=== PATIENT | female | born 1955 | race Caucasian/White ===

== ENCOUNTER 2016-11-25 16:30 | Inpatient (IN) | payer MEDICARE, MEDICAID ==
[~2016-11-25] VITALS: Ht 175.3 cm; Wt 119.6 kg
--- NOTE | ~2016-11-25 | HP ---
PATIENT'S NAME: MAGGIE CORDOVA [facility] AGE: 60 Y [address] ROOM: [id number] [place] [id number] LOCATION: [facility] ADMIT DATE: 11/25/2016 History & Physical DISCHARGE DATE: FAMILY PHYSICIAN: Juanito Lu MD ATTENDING PHYSICIAN: Juanito Lu DATE OF SERVICE: CHIEF COMPLAINT: Increasing confusion, weakness, and hematuria, possible sepsis syndrome. HISTORY OF PRESENT ILLNESS: The patient is a 60-year-old female who normally sees Dr. Mcdonald. 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 The patient basically over the last few days has had increasing confusion. She had had a suprapubic placed in the not too distant past, that was done for urinary retention. She has had a previous history of UTIs. The patient had increasing weakness and confusion over the last few days and then developed gross hematuria. She was transported to the [facility], seen there, and then transported here with Dr. Prescott, the hospitalist accepting. He reviewed the patient's chart, found out Dr. Mcdonald was the patient's doctor and consulted me. I discussed things with the patient. She is feeling weak. She states she is really not that worse than usual, and she is alert and responds appropriately to questions at this time. PAST MEDICAL HISTORY: Chronic health problems as above. CURRENT MEDICATIONS: 1. Abilify 2 mg tablet, she takes 7.5 tablets daily. Actually there was some confusion on our list from the office, it says 7.5 tablets daily whereas from the group home it was 7.5 mg p.o. every morning of a 5 mg tablet. 2. Acetaminophen. 3. Aspirin 325 daily. 4. Atorvastatin 20 mg daily. PATIENT'S NAME: MAGGIE CORDOVA [facility] AGE: 60 Y [address] ROOM: [place] [address] LOCATION: [facility] ADMIT DATE: 11/25/2016 History & Physical DISCHARGE DATE: FAMILY PHYSICIAN: Juanito Lu MD ATTENDING PHYSICIAN: Juanito Lu 5. Artificial Tears p.r.n. 6. Benazepril or 10 mg daily. 7. Cetaphil lotion. 8. Cetirizine 10 mg daily. 9. Plavix 75 mg daily. 10. Ferrous sulfate 325 daily. 11. Hydromorphone or Dilaudid 2 mg every 4 hours as needed. 12. Lantus 54 units in the morning and 54 units in the evening. 13. Humalog 15 units before breakfast and 18 units before supper, and she is also on a sliding scale. 14. She is on Imodium 2 mg p.r.n., diarrhea. 15. Milk of magnesia p.r.n., constipation. 16. Metoprolol 12.5 mg daily. 17. Multivitamin daily. 18. Nystatin p.r.n. 19. Ondansetron 4 mg sublingually every 6 hours p.r.n. nauseousness. 20. Pantoprazole 40 mg daily. 21. MiraLAX 17 g daily. 22. Gabapentin was recently increased to 150 mg three times daily. 23. Seroquel XR 200 mg at night. 24. Bactrim DS daily. 25. Tramadol 100 mg every 6 hours p.r.n. 26. Triamcinolone cream as needed. 27. Viibryd 40 mg daily. PREVIOUS SURGERIES: Abdominal aortogram and pelvic angiography with right lower extremity runoff plus selective catheter placement in the distal peroneal, attempted MANAGER MERCHANDISE of the posterior tibial artery by Dr. Latricia Sinha. She had a right BKA on 06/05/2015 and a left BKA on 10/14/2016. She had lumbar laminectomy x2; one in 2001 with left L5-S1 and lumbar laminectomy in 2006, not known which level. She has had dental extraction of all the bottom teeth. She had an echocardiogram, the last one being on 10/17/2016, which shows grossly normal in size but limited visualization and grade 1 diastolic dysfunction; in 2016, her EF was 45-50% with mild concentric LVH, impaired LV relaxation with mild to moderate apical wall hypokinesis. She had a heart catheterization in 02/2016 and had a RCA stent for 80% blockage. She had a total abdominal hysterectomy with left-sided removal of tube and ovary due to dysmenorrhea and endometriosis. She had a previous PICC line placement in 08/2016. She had a stent to her SFA on the right and the distal SFA on the right lower extremity. She has had 3 vaginal deliveries. Has a suprapubic catheter. She is 3, para 3. SOCIAL HISTORY: She is a resident at [facility] in [place]. She is a former smoker. Drinks PATIENT'S NAME: MAGGIE CORDOVA [facility] AGE: 60 Y [address] ROOM: [id number] [place] [address] LOCATION: [facility] ADMIT DATE: 11/25/2016 History & Physical DISCHARGE DATE: FAMILY PHYSICIAN: Juanito Lu MD ATTENDING PHYSICIAN: Juanito Lu 3 cups of coffee a day. Does not drink alcohol. She had a pneumococcal on 03/17/2011 and a previous Tdap on 10/27/2012. REVIEW OF SYSTEMS: HEENT: Denies complaints. LUNGS: Negative. CARDIOVASCULAR: Negative. GI: Negative. EXTREMITIES: Does complain of phantom pain at times. MENTAL STATUS: She seems to be alert and answers questions now, but does have a history of being increasingly confused and lethargic. PHYSICAL EXAMINATION: GENERAL: Alert female, resting comfortably in bed. HEENT: Normal. Oropharynx is clear, does not look very dry at this time, which is good. NECK: Supple. No adenopathy. LUNGS: Clear. HEART: Regular rate and rhythm. ABDOMEN: Morbidly obese. Suprapubic catheter is draining grossly red blood. EXTREMITIES: She has bilateral BKAs. NEUROLOGIC: She also has a right hemiparesis due to previous history of CVA. LABORATORY DATA: Currently pending here, I did review her lab work from [place]. She had normal EKG. She had a CT of her head, no acute changes. Chest x-ray showed low lung volumes, but otherwise normal. Sodium 139, potassium 4.2, chloride 102, carbon dioxide 21, glucose 71, urea nitrogen 31, and creatinine 1.42. Total calcium 9.7, total protein 8.4, albumin 4, total bilirubin 0.5, ALT 17, AST 34, and alkaline phosphatase 122. Lactic acid 1.6. ABG showed pH 7.34 with pCO2 44, PO2 102, bicarb 24, base excess -3, 97% saturated. White count was 7.4, hemoglobin 11.9, hematocrit 38, and platelet count 225. RDW 18.3. She had 69% granulocytes and 28% lymphocytes. ASSESSMENT: 1. Altered mental state with encephalopathy, most likely sepsis in nature and metabolic. 2. Sepsis syndrome. 3. Probable urinary tract infection. 4. Gross hematuria. 5. History of generalized anxiety disorder. 6. Coronary artery disease, status post stenting of her right coronary artery. 7. Chronic kidney disease, stage 3. 8. History of bilateral lower extremity amputation. PATIENT'S NAME: MAGGIE CORDOVA [facility] AGE: 60 Y [address] ROOM: [place] [address] LOCATION: [facility] ADMIT DATE: 11/25/2016 History & Physical DISCHARGE DATE: FAMILY PHYSICIAN: Juanito Lu MD ATTENDING PHYSICIAN: Juanito Lu 9. Adult-onset diabetes mellitus with numerous complications including peripheral vascular disease, kidney disease, neuropathy, and angioapathy. 10. She also has a known history of personality disorder, peripheral vascular disease, osteomyelitis, morbid obesity, ischemic vascular disease, and long-term insulin use. PLAN: At this point in time, we are going to admit the patient. We will do IV fluid hydration. Accu-Cheks a.c. and h.s., continue her insulin, and do a moderate sliding scale. Start her on IV antibiotics. I will hold off on Lovenox for the time being due to her gross hematuria. We will probably plan on a Urology consult in the morning. I did discuss the patient with Dr. Mcdonald, and he will assume care in the morning. JUANITO LU MD FLOYD/modl /[id number] CC: [employer]inter [facility]EL[facility] D: [id number] T: [id number] HISTORY & PHYSICAL
--- NOTE | ~2016-11-25 | DS ---
PATIENT'S NAME: MAGGIE CORDOVA [facility] AGE: 60 Y [address] ROOM: [id number] [place] [address] LOCATION: [facility] ADMIT DATE: 11/25/2016 Discharge Summary DISCHARGE DATE: 11/29/2016 FAMILY PHYSICIAN: Juanito Dupree MD ATTENDING PHYSICIAN: Juanito Dupree FINAL DIAGNOSES: 1. Mental status changes, resolved. 2. Urinary tract infection. 3. Type 2 diabetes mellitus. 4. History of bilateral below the knee amputation. 5. Anxiety. 6. Severe depression. 7. History of cerebrovascular accident with right-sided hemiparesis, mainly affecting the right arm. 8. Reflux. 9. Hyperlipidemia. 10. Hypertensive chronic kidney disease. 11. Ischemic vascular disease. 12. Morbid obesity. REASON FOR ADMIT: This 60-year-old white female had onset of confusion. It was felt that she may be getting septic. She subsequently presented to [facility], she was transferred over here for further definitive care. By the time she was here and the time Dr. Dupree's admit, she basically had altered mental status change resolved. She was found to have a UTI that was secondary to Proteus mirabilis. This was susceptible to Rocephin, IV antibiotics were changed to that. Really, she is ready to go home after 48 hours because she had no further fevers and was feeling great, back to normal state of health. However, the long term would not take her back at the weekend, so we weekend and on Tuesday morning she continued to be afebrile and was deemed ready for discharge. Her discharge instructions, only one changed, all from her admit one with exception of adding on Ceftin 250 b.i.d. for 5 days. She will call or return if she has any further problems or concerns. She voiced understanding of this plan and is eager to get home. DEYANIRA CAMPBELL MD TAB/modl PATIENT'S NAME: MAGGIE CORDOVA [facility] AGE: 60 Y [address] ROOM: [place] [address] LOCATION: [facility] ADMIT DATE: 11/25/2016 Discharge Summary DISCHARGE DATE: 11/29/2016 FAMILY PHYSICIAN: Juanito Dupree MD ATTENDING PHYSICIAN: Juanito Dupree /[id number] d: 11/29/16714 t: 12/08/16 0738, DISCHARGE SUMMARY
--- NOTE | ~2016-11-25 | CON ---
PATIENT'S NAME: MAGGIE CORDOVA [facility] AGE: 60 Y [address] ROOM: [id number] [place] [address] LOCATION: [facility]ICU ADMIT DATE: 11/25/2016 Consultation DISCHARGE DATE: FAMILY PHYSICIAN: Juanito Dupree MD ATTENDING PHYSICIAN: Juanito Dupree DATE OF CONSULTATION: 11/26/2016 CONSULTATION NOTE HISTORY OF PRESENT ILLNESS: The patient is a 60-year-old female admitted secondary to confusion, fatigue, and hematuria. The patient is well known to me. The patient has a chronic suprapubic catheter that is changed every other month. Her last change was in the middle of October and therefore, she is due for a catheter change in December. The patient was reported to have gross hematuria with clots, but has since cleared today. Currently, her urine is clear yellow. She is currently on Levaquin 750 mg IV daily for urinary tract infection. In view, her gross hematuria was probably secondary to catheter trauma, but I will plan on an outpatient cystoscopy at her next catheter change to further evaluate her bladder. PAST MEDICAL HISTORY: Significant for: 1. Diabetes with peripheral neuropathy. 2. Peripheral vascular disease. 3. Hyperlipidemia. 4. Hypertension. 5. Depression. 6. GERD. 7. Coronary artery disease. 8. Chronic renal disease. PAST SURGICAL HISTORY: Past operations include: 1. Bilateral BKAs. 2. Cardiac stent placement. 3. Suprapubic catheter placement. 4. Appendectomy with right oophorectomy. 5. Transabdominal hysterectomy. 6. Lumbar disk surgery. MEDICATIONS: See detailed history and physical. PATIENT'S NAME: MAGGIE CORDOVA [facility] AGE: 60 Y [address] ROOM: [id number] [place], [place] [address] LOCATION: GICU ADMIT DATE: 11/25/2016 Consultation DISCHARGE DATE: FAMILY PHYSICIAN: Juanito Dupree MD ATTENDING PHYSICIAN: Juanito Dupree ALLERGIES: ASPIRIN AND ZANTAC. SOCIAL HISTORY: No history of alcohol abuse. The patient is a former smoker. REVIEW OF SYSTEMS: Significant for confusion. PHYSICAL EXAMINATION: GENERAL: Elderly female, resting comfortably. LUNGS: Clear bilaterally. CARDIAC: Regular rhythm and rate. ABDOMEN: Obese, suprapubic catheter draining clear yellow urine. Suprapubic catheter site looks good. NEUROLOGIC: Right hemiparesis secondary to history of cerebrovascular accident. IMPRESSION: 1. Resolved gross hematuria. 2. Cystitis. 3. Neurogenic bladder. PLAN: We will schedule the patient for outpatient cystoscopy and suprapubic catheter change next month. MD GABINO GALVAN/rob /[id number] d: 11/26/16 2313 t: 12/13/16 1010, CONSULTATION REPORT
[~2016-11-25 16:30] MED LIST changes: -ALOE VESTA141 GM TOP; -ARIPIPRAZOLE15 MG PO; -CETAPHIL LOTION8 OZ TOP; -HUMALOG100 UNIT/1 SUB-Q; -IMODIUM2 MG PO; -LYRICA 150MG C150 MG PO; -SEROQUEL XR400 MG PO; -TRIAMCINOLONE454 GM TOP; -ULTRAM50 MG PO; -VIIBRYD40 MG PO; -ZOFRAN ODT4 MG SL
[2016-11-25] MEDS ORDERED: ZOFRAN ODT4 MG SL (17:58)
[2016-11-25] MEDS ORDERED: LYRICA 150MG C150 MG PO (17:59)
[2016-11-25] MEDS ORDERED: IMODIUM2 MG PO (18:05)
[2016-11-25] MEDS ORDERED: ULTRAM50 MG PO (18:08)
[2016-11-25] MEDS ORDERED: CETAPHIL LOTION8 OZ TOP (18:15)
[2016-11-25] MEDS ORDERED: TRIAMCINOLONE454 GM TOP (18:16)
[2016-11-25] MEDS ORDERED: ARIPIPRAZOLE15 MG PO (18:16)
[2016-11-25] MEDS ORDERED: VIIBRYD40 MG PO (18:17)
[2016-11-25] MEDS ORDERED: HUMALOG100 UNIT/1 SUB-Q ×3 (18:28→18:35)
--- NOTE | 2016-11-25 18:40 | NUR ---
Pt is 60 y/o female admit for altered mental status for . Pt's regular physician is Dr.Terry Mcdonald. Pt oriented to self. Able to follow commands and answer most questions. Many allergies. See chart. Red and yellow bracelets on. Hx htn,CVA,DM,weakness R side,bilat BKA,hypercholest,gerd,ulcer, kidney stone,urinary retention,suprapubic cath,stage 3 chronic renal,depression. Pt resides at [facility] in [place]. Came via flight from [place] ED.
--- NOTE | 2016-11-25 19:13 | NUR ---
Significant Event: ARRIVED TO FLOOR AT 1705. A/OX 3, SLOW TO RESPOND AND FORGETFUL. FOLLOWS COMMANDS. RT HAND VERY SLIGHT GRASP, DEFICIT FROM PREVIOUS STROKE. LEFT HAND MODERATE STRENGTH. BILAT BELOW THE KNEE AMPUTEES, ABLE TO HOLD OFF BED. DENIES NUMBNESS/TINGLING. SLURRED SPEECH. PUPILS 3MM, SLUGGISH. LUNGS CLEAR AND DIM, CURRENTLY ON 3 LITERS. DENIES PAIN. IV IN RT A/C SALINE LOCKED, AND LEFT FOREARM. SUPRAPUBIC BONILLA INTACT, DRAINING BLOODY URINE. NIHSS DONE FOR ALTERED MENTAL STATUS, GOT A 7. DR BERRIOS HERE TO ADMIT PATIENT, BUT DR CAMPBELL IS PRIMARY. DR ROY WAS CALLED BY [facility] AND WILL BE COMING TO WRITE ORDERS. ALARMS ON FOR SAFETY. Follow up: ADMISSION ORDERS. NEURO STATUS. URINE.
[2016-11-25 23:03] LABS: BICARBONATE 23.1 mmol/L (18.0-23.0); PCO2 39 mmHg (35-45); PO2 163 mmHg (80-90)
[2016-11-25 23:38] LABS: BASOPHIL # 0.1 K/uL (0.0-0.2); BASOPHIL % 0.7 %; EOSINOPHIL # 0.2 K/uL (0.0-0.5); EOSINOPHIL % 2.1 %; HEMATOCRIT 34.7 % (33.0-46.0); HEMOGLOBIN 10.9 g/dL (10.0-15.0); IMMATURE GRANULOCYTE % 0.2 %; LYMPHOCYTE # 1.8 K/uL (0.8-4.0); LYMPHOCYTE % 19.8 %; MCH 26.6 pg (27.0-34.0); MCHC 31.4 gm/dL (32.0-36.5); MCV 84.6 fl (83.0-98.0); MONOCYTE # 0.5 K/uL (0.0-1.0); MONOCYTE % 5.5 %; MPV 11.6 fl (9.4-12.4); NEUTROPHIL # (ANC) 6.5 K/uL (1.8-7.8); NEUTROPHIL % 71.7 %; NRBC % 0 /100WBC (0-0.00); PLATELET COUNT 211 K/uL (150-450); RDW-CV 16.6 % (11.9-14.6); WBC 9.1 K/uL (4.0-11.0)
[2016-11-25 23:49] LABS: INR - (THERAPEUTIC) 0.96 (0.92-1.07); PROTIME 10.1 SECONDS (9.8-11.4); PTT 30 SECONDS (25-32)
[2016-11-25 23:59] LABS: CALCIUM 8.6 mg/dL (8.5-10.5); CREATININE 1.4 mg/dL (0.5-1.1); TOTAL PROTEIN 7.2 g/dL (6.0-8.4)
[2016-11-26] LABS: ALBUMIN 2.9 gm/dL (3.5-5.0); TOTAL BILIRUBIN 0.3 mg/dL (0.0-1.5)
[2016-11-26 00:13] LABS: BILIRUBIN URINE NEGATIVE (NEGATIVE); BLOOD URINE 150 /UL (NEGATIVE); COLOR URINE RED (YELLOW); GLUCOSE URINE NEGATIVE (NEGATIVE); KETONE URINE NEGATIVE (NEGATIVE); LEUKOCYTES URINE 25 /UL (NEGATIVE); NITRITE URINE NEGATIVE (NEGATIVE); PROTEIN URINE 100 mg/dL (NEGATIVE); SPEC GRAVITY URINE 1.015 (1.003-1.035); TURBIDITY URINE 4+ (CLEAR); UROBILINOGEN URINE NORMAL (NORMAL)
[2016-11-26 00:32] LABS: BACTERIA URINE FEW (NEGATIVE); EPITHELIAL URINE 0-2 #/HPF (NEGATIVE); RBC URINE PACKED FIELD #/HPF (NEGATIVE)
--- NOTE | 2016-11-26 04:25 | NUR ---
Significant Event:Patient A/O x 3. Slow to respond. Perrla. Denies N/T/pain. On room air. VSS. NS running at 75 ml/hr. PIV in R)AC and L)FA. BS active, no bm this shift. Suprapubic catheter intact, bloody urine. Diabetic diet. ACHS accuchecks. Follow up: Vitals q2, continue to monitor.
[2016-11-26 06:12] LABS: BASOPHIL % 0.5 %; EOSINOPHIL # 0.2 K/uL (0.0-0.5); EOSINOPHIL % 2.1 %; HEMATOCRIT 31.5 % (33.0-46.0); IMMATURE GRANULOCYTE % 0.4 %; LYMPHOCYTE # 1.2 K/uL (0.8-4.0); MCH 26.9 pg (27.0-34.0); MCHC 31.7 gm/dL (32.0-36.5); MCV 84.7 fl (83.0-98.0); MONOCYTE # 0.5 K/uL (0.0-1.0); MPV 11.8 fl (9.4-12.4); NEUTROPHIL # (ANC) 5.7 K/uL (1.8-7.8); NRBC % 0 /100WBC (0-0.00); PLATELET COUNT 204 K/uL (150-450); RBC 3.72 M/uL (3.50-5.50); RDW-CV 16.7 % (11.9-14.6); WBC 7.6 K/uL (4.0-11.0)
[2016-11-26 06:26] LABS: ANION GAP 14.2 (10.0-19.0); CALCIUM 8.4 mg/dL (8.5-10.5); CREATININE 1.3 mg/dL (0.5-1.1); POTASSIUM 4.2 mMol/L (3.7-5.1)
[2016-11-26] MEDS ORDERED: GLUCAGON 1 MG PE1 MG SUB-Q (11:56)
--- NOTE | 2016-11-26 12:33 | NUR ---
Introduced self and role of care management to patient. She currently is residing at [facility] in [place]. She states that she will be there for another 2 months. She is suppose to get her legs in 2 weeks and then will need to learn to use them. She plans on returning to [place] on discharge. I did call and speak with Lilliam at [facility]. They will not be able to accept patient over the weekend. Will plan on discharge Tuesday if medically stable.
[2016-11-26] MEDS ORDERED: SEROQUEL XR400 MG PO (12:44)
--- NOTE | 2016-11-26 15:49 | NUR ---
Significant Event: Pt A&Ox3. Forgetful. Slow to respond at times. Slurred speech. C/O blurry vision, states she needs her glasses. R arm weak, very limited movement due to contracture. LS clear and dim on room air. Bowel sounds active, no BM this shift. Suprapubic catheter draining yellow urine with white sediment. Up to chair with 2A Full lift. IV running. ACHS accuchecks. Follow up: return to [facility] when stable.
--- NOTE | 2016-11-27 05:12 | NUR ---
Significant Event: Pt A&Ox3, but forgetful. VS stable, remains on RA. LS clear/dim. Did have c/o marylou leg pain, PRN dilaudid worked. UO remains good. Urine color goes back and forth between yellow/clear to brick red. White sediments and blood clots found. Rt arm weak and slightly contractured from previous CVA. Accuchecks ACHS, mod scale, SSI with meals. PIV RAC, NS @ 75, int ABx; LFA, SL; int ABx. Q2H turns. Follow up: Continue plan of care.
[2016-11-27 05:43] LABS: BASOPHIL % 0.6 %; EOSINOPHIL # 0.2 K/uL (0.0-0.5); EOSINOPHIL % 3.9 %; HEMATOCRIT 31.3 % (33.0-46.0); HEMOGLOBIN 9.7 g/dL (10.0-15.0); IMMATURE GRANULOCYTE % 0.4 %; LYMPHOCYTE # 1.2 K/uL (0.8-4.0); LYMPHOCYTE % 23.1 %; MCH 26.4 pg (27.0-34.0); MCV 85.1 fl (83.0-98.0); MONOCYTE # 0.4 K/uL (0.0-1.0); MONOCYTE % 8.2 %; MPV 11.7 fl (9.4-12.4); NEUTROPHIL # (ANC) 3.4 K/uL (1.8-7.8); NEUTROPHIL % 63.8 %; NRBC % 0 /100WBC (0-0.00); PLATELET COUNT 193 K/uL (150-450); RBC 3.68 M/uL (3.50-5.50); RDW-CV 16.6 % (11.9-14.6); WBC 5.4 K/uL (4.0-11.0)
[2016-11-27 06:05] LABS: ALBUMIN 2.6 gm/dL (3.5-5.0); CALCIUM 8.4 mg/dL (8.5-10.5); CREATININE 1.1 mg/dL (0.5-1.1); TOTAL PROTEIN 6.6 g/dL (6.0-8.4)
[2016-11-27 06:06] LABS: ANION GAP 12.5 (10.0-19.0); POTASSIUM 4.5 mMol/L (3.7-5.1); TOTAL BILIRUBIN 0.2 mg/dL (0.0-1.5)
--- NOTE | 2016-11-27 15:06 | NUR ---
Significant Event: A/O X3 - Forgetful. slow to respond, up in chair all morning, Suprapubic cath patent w/ clear yellow urine. incontinent scant BM, IVF R)AC, L)FA saline lock, good appetite, refuses to turn states "since my stroke I don't do that" hx. Bilat. DEEPAK Follow up: accuchecks, possible discharge back to [facility] Sun or Mon.
--- NOTE | 2016-11-28 04:29 | NUR ---
Significant Event: Pt A&Ox3, forgetful. VS stable, remains on RA. Does have still some pain associated with LLE; most pain became tolerable with tylenol and dilaudid in conjunction. Urine has remained clear yellow with white sediments. Did refuse to turn. Follow up: Continue plan of care. Per MD, pt can discharge home when they will accept her, most likely Tuesday d/t them not accepting on weekends.
--- NOTE | 2016-11-28 18:46 | NUR ---
Significant Event: A/O X3, slow to respon & forgetful, drowsy today, full lift, up to chair, hx bilat. BKA. suprapubic catheter yellow urine with white sediment, saline lock R)AC & L)FA, RUE contracted/edema from previous stroke. good appetite. Follow up: accuchecks plan to return to [facility] tomorrow
--- NOTE | 2016-11-29 05:25 | NUR ---
Significant Event: No changes overnight. VS stable, remains on RA. Gave tramadol last night with nighttime meds; relief noted. No additional pain meds given up to this point. Follow up: To d/c home.
--- NOTE | 2016-11-29 08:30 | NUR ---
Called and notified Pia Mathisy that patient has signed discharge orders, Arrangements made for patient to be transported at 10:00. Orders faexed.
--- NOTE | 2016-11-29 09:58 | NUR ---
A/O X3, slow speech, forgetful at times, suprapubic catheter patent with yellow urine & white sediment. XL soft BM today. good appetite. aloe vesta to buttocks for skin protection. RUE edema & contracted from previous stroke.
== END 2016-11-29 10:13 | DRG 871 ==
LOC: GICU 17:09
PROVIDERS: ADMIT Obstetrics & Gynecology Obstetrics
DX: A41.9 Sepsis, unspecified organism (principal); G93.40 Encephalopathy, unspecified; N17.9 Acute kidney failure, unspecified; N18.3 Chronic kidney disease, stage 3 (moderate); F32.2 Major depressive disorder, single episode, severe without psychotic features; N39.0 Urinary tract infection, site not specified; Z68.41 Body mass index [BMI] 40.0-44.9, adult; I69.951 Hemiplegia and hemiparesis following unspecified cerebrovascular disease affecting right dominant side; G93.0 Cerebral cysts; R65.20 Severe sepsis without septic shock; E11.9 Type 2 diabetes mellitus without complications; E66.01 Morbid (severe) obesity due to excess calories; E78.5 Hyperlipidemia, unspecified; I12.9 Hypertensive chronic kidney disease with stage 1 through stage 4 chronic kidney disease, or unspecified chronic kidney disease; I25.10 Atherosclerotic heart disease of native coronary artery without angina pectoris; R31.0 Gross hematuria; F41.9 Anxiety disorder, unspecified; N31.9 Neuromuscular dysfunction of bladder, unspecified; G54.6 Phantom limb syndrome with pain; Z79.82 Long term (current) use of aspirin; Z87.891 Personal history of nicotine dependence; Z79.4 Long term (current) use of insulin; Z89.512 Acquired absence of left leg below knee; Z89.511 Acquired absence of right leg below knee; I99.8 Other disorder of circulatory system; B96.4 Proteus (mirabilis) (morganii) as the cause of diseases classified elsewhere
CPT/HCPCS: J0696; J1956; J2543; J7030; J7040; J7050

== ENCOUNTER → 2016-11-25 | Outpatient (CLI) | payer MEDICARE, MEDICAID ==
[~2016-11-25] MED LIST: **HUMALOG*100 UNIT/M PO; **HUMALOG*100 UNIT/M SUB-Q; ALOE VESTA141 GM TOP; ARIPIPRAZOLE15 MG PO; ARIPIPRAZOLE5 MG PO; ARTHRITIS PAIN650 M1 PO; ASPIR-TRIN325 MG PO; BACTRIM DS1 TAB PO; CETAPHIL LOTION8 OZ TOP; DEPAKOTE EXTEN500 MG PO; DEPAKOTE500 MG PO; DIFLUCAN100 MG PO; DILAUDID 2MG(HYD2 MG PO; DILAUDID 4MG4 MG PO; EUCERIN CREME57 GM TOP; FIORICET 50-301 EACH PO; GLUCAGON 1 MG PE1 MG SUB-Q; GLUCOSE1 EACH PO; HUMALOG100 UNIT/1 SUB-Q; IMODIUM2 MG PO; IRON325 M1 PO; LACRI-LUBE) (D1 TUBE TOP; LANTUS (IN100 UNIT/M SUB-Q; LIPITOR20 M1 PO; LOTENSIN10 MG PO; LOTRIMIN30 GM TOP; LYRICA 150MG C150 MG PO; MILK OF MA400 MG/5 M PO; MIRALAX17 GM PO; MULTIVITAMINS1 EAC1 PO; MYCOSTATIN(NYST15 GM TOP; NEURONTIN300 MG PO; PLAVIX75 MG PO; PROTONIX40 MG PO; SEROQUEL XR300 MG PO; SEROQUEL XR400 MG PO; TEARS NATURALE1 EACH OPHTH; TOPROL XL25 MG PO; TRIAMCINOLONE454 GM TOP; ULTRAM50 MG PO; VIIBRYD40 MG PO; XANAX0.25 MG PO; ZOFRAN ODT4 MG SL; ZYRTEC10 MG PO
== END | disposition disaster alternative care site (69) ==
LOC: GAIR 15:56 → GAMB 15:56
DX: E86.0 Dehydration (principal); E11.649 Type 2 diabetes mellitus with hypoglycemia without coma; I95.9 Hypotension, unspecified; E78.5 Hyperlipidemia, unspecified; I12.9 Hypertensive chronic kidney disease with stage 1 through stage 4 chronic kidney disease, or unspecified chronic kidney disease; N18.9 Chronic kidney disease, unspecified; E87.1 Hypo-osmolality and hyponatremia; F41.9 Anxiety disorder, unspecified; F31.9 Bipolar disorder, unspecified; M86.9 Osteomyelitis, unspecified; R31.9 Hematuria, unspecified; R41.82 Altered mental status, unspecified; R53.83 Other fatigue; R40.0 Somnolence; Z79.82 Long term (current) use of aspirin; Z79.4 Long term (current) use of insulin; Z88.5 Allergy status to narcotic agent; Z88.8 Allergy status to other drugs, medicaments and biological substances; Z79.01 Long term (current) use of anticoagulants; Z79.899 Other long term (current) drug therapy
CPT/HCPCS: A0422; A0431; A0436

== ENCOUNTER 2016-12-15 15:00 | Inpatient (IN) | payer MEDICARE, MEDICAID ==
[~2016-12-15] VITALS: Ht 167.6 cm; Wt 120.8 kg
--- NOTE | ~2016-12-15 | DS ---
PATIENT'S NAME: MAGGIE CORDOVA [facility] AGE: 61 Y [address] ROOM: [address] [place], [place] [address] LOCATION: GPCU ADMIT DATE: 12/15/2016 Discharge Summary DISCHARGE DATE: 12/20/2016 FAMILY PHYSICIAN: Deyanira Mcdonald MD ATTENDING PHYSICIAN: Deyanira Mcdonald FINAL DIAGNOSES: 1. Acute renal insufficiency. 2. Sepsis secondary to pseudomonas. 3. Type 2 diabetes mellitus with A1c of 7.3%. 4. Hypertension. 5. Morbid obesity. 6. Peripheral vascular disease. 7. Coronary artery disease. 8. Osteomyelitis in the past. PRINCIPAL PROCEDURES: None. REASON FOR ADMIT: This 61-year-old female had an episode of acute kidney injury with a systolic blood pressure in the 60s. She was unresponsive and was taken and admitted in the ER. She responded nicely to fluid bolus and transferred here. She was found to have pseudomonas UTI with sepsis. She was also found to be in acute kidney failure with a creatinine of 4.24 with a baseline being more in the 0.92 range done back in November. Please see dictated H and P for full details. HOSPITAL COURSE: The patient was initially admitted and placed on IV Zosyn and levofloxacin. Blood pressures were stable at that time. Kidney function was monitored closely and ended up having a Nephrology consult, did give some bicarb to the IV. Continue to watch that get better. It was down to 1.3 the day prior to discharge and was still pending on the day of discharge. She was continuing to feel better, was afebrile through her entire hospital course. She really was probably ready to go to the detention on the as well as the and ; however, the detention would not take her back until Tuesday. She is currently stable at this point and will be discharged back to the detention and will follow up within 1 week. She will call or return sooner for any further problems or concerns. DEYANIRA MCDONALD MD TAB/modl PATIENT'S NAME: MAGGIE CORDOVA [facility] AGE: 61 Y [address] ROOM: [facility] [place], [place] [address] LOCATION: GPCU ADMIT DATE: 12/15/2016 Discharge Summary DISCHARGE DATE: 12/20/2016 FAMILY PHYSICIAN: Deyanira Mcdonald MD ATTENDING PHYSICIAN: Deyanira Mcdonald /[id number] d: 12/21/16 0148 t: 12/24/16 0626, DISCHARGE SUMMARY
--- NOTE | ~2016-12-15 | HP ---
PATIENT'S NAME: MAGGIE CORDOVA [facility] AGE: 61 Y [address] ROOM: [address] [place] [id number] LOCATION: GPCU ADMIT DATE: 12/15/2016 History & Physical DISCHARGE DATE: FAMILY PHYSICIAN: PHYSICIAN, UNKNOWN ATTENDING PHYSICIAN: Salty Mcdonald DATE OF SERVICE: CHIEF COMPLAINT: Unresponsive. HISTORY OF PRESENT ILLNESS: The patient is a very unhealthy 61-year-old, who has a longstanding history of multiple medical problems who resides at a prison, who was transferred to [facility] with decreased responsiveness and difficult to arouse earlier today. She had change in mental status. She had a blood pressure of 60/40 and pulse rate in the low 100s. She was groggy but responsive. She did respond nicely with the blood pressure to a fluid bolus. She had just recently been admitted for a similar course, although not nearly as lengthy. Initially, it was felt that she was septic, however, she never really had any sepsis markers or positive blood culture. She was recently started on a long- acting morphine at a very low dose of 15 mg twice a day to try and help out with her very difficult to control. She was very tired at times with that and clearly she could not tolerate any sort of long-acting narcotics. I told her that those will be abandoned from now on without any further attempts. She was definitely going to be in acute renal failure with her labs and subsequently was transferred up here to [facility]. PAST MEDICAL HISTORY: Please see dictated H and P on 11/25/[address] Dupree. This has essentially remained unchanged. SOCIAL HISTORY: Please see dictated H and P on 11/25/[address] Dupree. This has essentially remained unchanged. FAMILY HISTORY: Please see dictated H and P on 11/25/[address] Dupree. This has essentially remained unchanged. REVIEW OF SYSTEMS: As per HPI, otherwise noncontributory. She denies any chest pain or pressure, shortness of breath, orthopnea, PND, melena, hematochezia, blood per rectum. All other review of systems are negative. PATIENT'S NAME: MAGGIE CORDOVA [facility] AGE: 61 Y [address] ROOM: [facility] [place], [place] [address] LOCATION: [facility] ADMIT DATE: 12/15/2016 History & Physical DISCHARGE DATE: FAMILY PHYSICIAN: PHYSICIAN, UNKNOWN ATTENDING PHYSICIAN: Salty Mcdonald PHYSICAL EXAMINATION: VITAL SIGNS: Temperature 98.5, pulse 100, respirations 12, blood pressure 112/58. Weight 122.9 kg or 270 pounds, height 5 feet 9 inches. GENERAL: The patient is a nontoxic-appearing 61-year-old, who appears her stated age. She certainly seems awake, alert, and oriented to me and her normal state of health. HEENT: Normocephalic and atraumatic. Ears, TMs are clear and intact bilaterally. Nose patent. Throat clear. NECK: Without lymphadenopathy, JVD, thyromegaly, or bruits. HEART: Regular rate and rhythm without audible murmur. LUNGS: Clear to auscultation bilaterally without wheezes, rhonchi, or rales. ABDOMEN: Soft, nondistended. No areas of guarding or tenderness. EXTREMITIES: She has bilateral mummk-rul-lpae amputations. She does have some right hemiparesis from an old stroke. LABORATORY DATA: Her CT scan done at [facility] was read as unremarkable. Her white cell count was 7.6, hemoglobin 9.7, hematocrit 30%, platelet count 190,000. Lactic acid was 1.0. Sodium 138, potassium 5.1, chloride 109, CO2 11, glucose 67, BUN 83, creatinine 4.24 compared to a baseline creatinine at the same facility of BUN and creatinine of 13 and 0.92 done in November, calcium 7.7. Total protein 6.4, albumin 3.1, ALT 25, AST 17, alkaline phosphatase 100. Urine shows greater than 100 white cells, 11 to 40 reds, marked yeast, and moderate bacteria. She does have an indwelling Prakash catheter present. ASSESSMENT: 1. Unresponsiveness with hypotension. This is cleared at this point with the fluid bolus. Her blood pressure is much better as well. Her lactic acid certainly does not show her to be septic at this point and her white cell count really looks pretty normal but we will continue to monitor those labs. Certainly, her urine has been an issue in the past. We will go ahead and put her on IV Zosyn and Levaquin until we have a further idea what her urine culture looks like. We will make sure that the urine was cultured at [facility]. 2. Acute renal failure. Certainly, her baseline kidney function is normal as outlined above. We will go ahead and hold any nephrotoxic medications including her DEANNA inhibitor. We will go ahead and give her some fluids and see what her creatinine does through the night. Hopefully, this is prerenal from her hypotension and will considerably improve. If not, we will definitely have the outside medical sales representative take a look at her. 3. History of indwelling catheter with apparent urinary tract infection as above. 4. Hypertension, normally adequately control. 5. Type 2 diabetes mellitus. Her last A1c was 7.3 on November 15, which is actually a pretty good control for her. She is very labile. We will PATIENT'S NAME: MAGGIE CORDOVA [facility] AGE: 61 Y [address] ROOM: [place] [address] LOCATION: [facility] ADMIT DATE: 12/15/2016 History & Physical DISCHARGE DATE: FAMILY PHYSICIAN: PHYSICIAN, UNKNOWN ATTENDING PHYSICIAN: Salty Mcdonald continue with Accu-Cheks and sliding scale insulin. 6. History of cerebrovascular accident. Overall she is stable. 7. History of coronary artery disease. She is status post stent in the RCA in February 2016. Currently does not have any symptoms with that. 8. Peripheral vascular disease. Overall is stable with her bilateral amputations. She voiced understanding of that plan. SALTY MCDONALD MD TAB/modl /[id number] D: T: 623 HISTORY & PHYSICAL
--- NOTE | ~2016-12-15 | CON ---
PATIENT'S NAME: MAGGIE CORDOVA [facility] AGE: 61 Y [address] ROOM: [address] [place] [id number] LOCATION: GPCU ADMIT DATE: 12/15/2016 Consultation DISCHARGE DATE: FAMILY PHYSICIAN: PHYSICIAN, UNKNOWN ATTENDING PHYSICIAN: Salty Mcdonald DATE OF CONSULTATION: 12/16/2016 REFERRING PHYSICIAN: Christine Long REASON FOR CONSULTATION: Elevated BUN and creatinine. HISTORY OF PRESENT ILLNESS: The patient is a 61-year-old white female with a history of diabetes and diabetic neuropathy. She is status post bilateral below-knee amputation and she also has peripheral vascular disease along with coronary artery disease. The patient has had an episode of acute kidney injury in 2013. At that time, creatinine went up to 2.6. She is in a care home and she is normally on benazepril. The patient became more obtunded yesterday and was taken to local emergency room. Then, she got admitted to [facility]. I believe her lowest systolic blood pressure was in 60s. She did receive intravenous fluids and blood pressure did improve, but her creatinine went up from baseline 1.4 on November 27 to 3.4 today with GFR of 14. Dr. Mcdonald was concerned and asked me to see this lady for a Nephrology consultation. REVIEW OF SYSTEMS: GENERAL: She denies any fever, chills, or rigors. She is tired. HEENT: Denies any sore throat or sinus congestion. CARDIOVASCULAR: Denies any chest pain or dyspnea on exertion. RESPIRATORY: Denies shortness of breath, cough, or wheezing. GI: Denies abdominal pain, nausea, or vomiting. : Denies any dysuria. MUSCULOSKELETAL: Denies any joint pain or swelling. SKIN: Denies any rash or pruritus. Denies any allergies or hay fever. LYMPHATIC/HEMATOLOGIC: Denies any lymph node enlargement or easy bruising. Denies any heat or cold intolerance. PSYCHIATRIC: Denies any sadness, crying spells, poor concentration, or panic attack. ALLERGIES: ALLERGIC TO NONSTEROIDALS, MORPHINE AND OXYCODONE. MEDICATIONS: 1. Nystatin as prescribed. 2. Seroquel 300 mg at bedtime. PATIENT'S NAME: MAGGIE CORDOVA [facility] AGE: 61 Y [address] ROOM: [address] [address] LOCATION: GPCU ADMIT DATE: 12/15/2016 Consultation DISCHARGE DATE: FAMILY PHYSICIAN: PHYSICIAN, UNKNOWN ATTENDING PHYSICIAN: Salty Mcdonald 3. Pantoprazole 40 mg a day. 4. MiraLAX p.r.n. 5. Benazepril 10 mg a day. 6. Multivitamin once a day. 7. Aspirin 325 mg a day. 8. Plavix 75 mg a day. 9. Metoprolol 25 mg half everyday. 10. Magnesium oxide 400 mg twice a day. 11. Cetirizine 10 mg a day. 12. Acetaminophen p.r.n. 13. Atorvastatin 20 mg a day. 14. Bactrim 1 tablet everyday. 15. Insulin glargine as prescribed. 16. Ferrous sulfate 325 mg a day. 17. Zofran 4 mg sublingual p.r.n. 18. Pregabalin 150 mg a day. 19. Loperamide 2 mg p.r.n. 20. Tramadol p.r.n. 21. Triamcinolone p.r.n. PAST MEDICAL HISTORY: 1. Diabetes mellitus with diabetic neuropathy, possibly has diabetic retinopathy. 2. Hypertension. 3. Peripheral vascular disease. 4. Coronary artery disease. PAST SURGICAL HISTORY: 1. Bilateral below-knee amputation. 2. Cardiac catheterization. SOCIAL HISTORY: She lives in [facility] in [place]. She is a former smoker. Drinks 3 cups of coffee a day. Does not drink alcohol. FAMILY HISTORY: No family history of kidney disease or dialysis. PHYSICAL EXAMINATION: GENERAL: A 61-year-old white female, looks older for her age. Sitting up in the hospital bed. Not in acute distress. She has a right facial droop and partial occlusion of her left eyelid. VITAL SIGNS: Temperature 97.7, pulse 101, systolic blood pressure 146 and diastolic 55. HEENT: Head is normocephalic. Pupils are round and equal. Normal eyelid PATIENT'S NAME: MAGGIE CORDOVA [facility] AGE: 61 Y [address] ROOM: [address] [address] LOCATION: GPCU ADMIT DATE: 12/15/2016 Consultation DISCHARGE DATE: FAMILY PHYSICIAN: PHYSICIAN, UNKNOWN ATTENDING PHYSICIAN: Mcdonald,Salty A and pale conjunctivae. As mentioned above, she has partial occlusion of the left eyelid. She has right-sided facial droop. Trachea central. No thyromegaly. No bruit. Unable to evaluate jugular venous pulsation. HEART: Sounds are audible in all the areas without any gallop or murmur. There is a pericardial rub. Pulses regular in rhythm. LUNGS: Bilaterally clear to auscultate anteriorly. No intercostal retraction. ABDOMEN: Obese, soft, and nontender. She has a suprapubic catheter. EXTREMITIES: She has below-knee amputation bilaterally. NEUROLOGIC: She is alert. She has right facial droop. HIGHER PSYCHIATRIC FUNCTION: She has normal speech and memory. LYMPHATICS: Did not examine lymphatics. LABORATORY DATA: Sodium 142, potassium 5.1, chloride 116, bicarb of 15, BUN of 79, creatinine 3.4, calcium 7.4, and albumin of 2.6. Urinalysis shows 2+ protein. ASSESSMENT: 1. Acute kidney injury most likely this is prerenal in etiology. The patient was on benazepril as an outpatient and her systolic blood pressure went down to 60s. She did improve her blood pressure with intravenous volume. 2. Hypotension, probably from volume depletion. 3. Metabolic acidosis. 4. Peripheral vascular disease. 5. Coronary artery disease. 6. Grade 1 diastolic dysfunction of the heart. 7. Proteinuria. PLAN: The patient is on Zosyn and I would recommend that we change Zosyn to an alternative medicine. Change the IV fluid to intravenous bicarbonate. I agree with volume repletion for her. I will follow her renal function very closely. I will check urine protein to creatinine ratio and I will follow her renal function very closely. Thank you very much for asking me to see this lady for Nephrology consultation. I will follow closely. M MD EDWIN BRENNAN/rob PATIENT'S NAME: MAGGIE CORDOVA [facility] AGE: 61 Y [address] ROOM: [place] [address] [facility] ADMIT DATE: 12/15/2016 Consultation DISCHARGE DATE: FAMILY PHYSICIAN: PHYSICIAN, UNKNOWN ATTENDING PHYSICIAN: Salyt Mcdonald /[id number] d: 12/16/16 2325 t: 12/19/16 1042, CONSULTATION REPORT
[~2016-12-15 15:00] MED LIST changes: -ALOE VESTA141 GM TOP
[2016-12-15] MEDS ORDERED: ALOE VESTA141 GM TOP (16:02)
--- NOTE | 2016-12-15 18:04 | NUR ---
Patient is 61 yo female admitted this afternoon from the [facility]. Patient is a resident of [facility] in [place]. She was recently a patient at [facility] for altered mental status and urosepsis. she was here 11/25-11/29/16. Patient received IV antibiotics and went home on oral antibiotics. She is found today by staff with altered mental status again and possible sepsis. She was taken to the [facility] and is transferred here for Dr. Mcdonald. Patient has IV infusing in right dorsal hand without erythema or edema noted at the site. supra pubic catheter is draining yellow drainage and sediment is noted in the tubing as well. patient does arouse, however her answers are not appropriate at this time. She does state she is in [facility] and that she has been her for 1 1/2 days. Asked patient who Lavinia Dumont was, if he was a relative. She seemed paranoid about why I was asking, but then said he was her son and POA. no other education is given at this time due to patient's mental status. pneumatics are not an option w/pt bilateral BKA. call light is within reach. report is given to ESE Ramírez.
[2016-12-16 03:04] LABS: BASOPHIL % 0.4 %; EOSINOPHIL # 0.2 K/uL (0.0-0.5); EOSINOPHIL % 2.3 %; HEMOGLOBIN 9.3 g/dL (10.0-15.0); IMMATURE GRANULOCYTE % 0.3 %; LYMPHOCYTE # 0.7 K/uL (0.8-4.0); LYMPHOCYTE % 10.6 %; MCH 27.3 pg (27.0-34.0); MCHC 32.1 gm/dL (32.0-36.5); MONOCYTE # 0.5 K/uL (0.0-1.0); MONOCYTE % 7.4 %; MPV 12.5 fl (9.4-12.4); NEUTROPHIL # (ANC) 5.5 K/uL (1.8-7.8); NRBC % 0 /100WBC (0-0.00); PLATELET COUNT 200 K/uL (150-450); RBC 3.41 M/uL (3.50-5.50); RDW-CV 16.4 % (11.9-14.6)
--- NOTE | 2016-12-16 03:13 | NUR ---
Significant Event: A/0X3. DROWSY. OPENS EYES TO VOICE. RESTED IN BED ALL OF SHIFT. TURNED Q 2 HRS SIDE TO SIDE. AFEBRILE. VSS ON RA. DENIES PAIN. IV TO R) HAND HAS NS @ 125 ML/H. STARTED HER ON IV ZOSYN AND LEVAQUIN THIS SHIFT FOLLOWING THE SEPSIS ORDER SHEET. SUPRAPUBIC CATHETER PRESENT WITH 1150 MLS OUT. NO BM THIS SHIFT. NEED SPUTUM CULTURE. Follow up: CONTINUE [facility] PLAN OF CARE.
[2016-12-16 03:16] LABS: CREATININE 3.4 mg/dL (0.5-1.1); POTASSIUM 5.1 mMol/L (3.7-5.1)
[2016-12-16 03:19] LABS: ANION GAP 16.1 (10.0-19.0); CALCIUM 7.4 mg/dL (8.5-10.5)
--- NOTE | 2016-12-16 13:37 | NUR ---
(-)MST; WT IS UP FROM PREVIOUS ADMITS. WILL ASSIST NEEDED
--- NOTE | 2016-12-16 14:15 | NUR ---
I did call Pia at [facility] and updated her. She states they are holding her bed and yes she is under Medicare skilled. Dr Mcdonald is her PCP. WIll continue to keep them updated also with anticipated dc date.
--- NOTE | 2016-12-16 16:03 | NUR ---
lethargic, responds to pain at times. Did not eat or drink today too drowsy. unable to give meds. vss. full lift. repo q2. bs jesus, suprapubic cath. ls clear. r hand ns @125. nephro consult today. achs no coverage.
[2016-12-17 03:55] LABS: BASOPHIL % 0.7 %; EOSINOPHIL # 0.3 K/uL (0.0-0.5); EOSINOPHIL % 5.2 %; HEMATOCRIT 28.1 % (33.0-46.0); IMMATURE GRANULOCYTE % 0.2 %; LYMPHOCYTE # 1.5 K/uL (0.8-4.0); LYMPHOCYTE % 26.9 %; MCH 27.4 pg (27.0-34.0); MCV 85.4 fl (83.0-98.0); MONOCYTE # 0.7 K/uL (0.0-1.0); MONOCYTE % 11.6 %; MPV 12.1 fl (9.4-12.4); NEUTROPHIL # (ANC) 3.1 K/uL (1.8-7.8); NEUTROPHIL % 55.4 %; NRBC % 0 /100WBC (0-0.00); PLATELET COUNT 188 K/uL (150-450); RBC 3.29 M/uL (3.50-5.50); RDW-CV 16.2 % (11.9-14.6); WBC 5.6 K/uL (4.0-11.0)
[2016-12-17 04:12] LABS: ALBUMIN 2.5 gm/dL (3.5-5.0); CALCIUM 8.3 mg/dL (8.5-10.5); PHOSPHORUS 3.9 mg/dL (2.5-4.9); POTASSIUM 4.8 mMol/L (3.7-5.1)
[2016-12-17 04:14] LABS: ANION GAP 14.8 (10.0-19.0)
--- NOTE | 2016-12-17 05:53 | NUR ---
Significant Event: PT A/O X3. DROWSY AT TIMES. VSS. SBP 130-150'S. HR 90-96. AFEBRILE. C/O BACK AND BILAT LEG PAIN. ULTRAM GIVEN WITH LITTLE RELEIF. IV TO RIGHT HAND. SUPERPUBIC CATHETER WITH 1100 OUT. NO BM THIS SHIFT. ACHS. PT ATE 25% OF SUPPER MEAL. BLOOD SUGAR AT [address] HAHN NOTIFIED HELD LEVEMIR UNTIL CAN BE ADDRESSED BY DR CAMPBELL IN AM. PT HAS ABRASION ON RIGHT BUTTOCK IN CREASE OPEN AREA, SLIGHTLY REDDENED, SCANT/SMALL SEROUS DRAINAGE, AND OPEN TO AIR. THIS WAS PASSED ON TO THIS SHIFT FROM PREVIOUS SHIFT RN. PT TURNED Q 2HRS SIDE TO SIDE. Follow up: FOLLOW CARE PLAN.
--- NOTE | 2016-12-17 18:58 | NUR ---
1050 RN CALLED MD CAMPBELL TO INFORM HIM ON UA RESULTS. NO SENSITIVITY WAS IN THE REPORT SO HE WANTS TO BE CALLED BACK WHEN IT ARRIVES.
--- NOTE | 2016-12-17 18:59 | NUR ---
9835 RN CALLED CLINIC TO CHECK AND SEE IF SENSITIVITY RESULTS WERE READY. LAB SAID HOPEFULLY BY 4 BUT IF NOT, TOMORROW. THEY HAVE FAX NUMBER AND HAVE BEEN ASKED TO FAXED TO PCU.
--- NOTE | 2016-12-17 19:00 | NUR ---
PATIENT WAS STILL VERY DROWSY AND LETHARGIC ALL DAY. WHEN YOU WOKE HER AND ASKED QUESTIONS SHE WAS AAOX3. SHE HAS DIFFICULTY SPEAKING AND CHEWING (SPEAKING DUE TO STROKE). SHE HAS REPEATEDLY EXPRESSED THAT SHE WANTS TO GO HOME. PATIENT DID HAVE A BOWEL MOVEMENT TODAY.
--- NOTE | 2016-12-18 04:48 | NUR ---
Significant Event: PATIENT IS A/O X3 BUT FORGETFUL WITH ON/OFF DROWSINESS. VSS. HR 80-90'S. SBP 120-160'S. AFEBRILE. 02 SATS IN MID 90'S ON RA. NO C/O PAIN. LUNGS CLEAR/DIM TO DIM. PATIENT HAD HISTORY OF STROKE WITH RIGHT SIDED FACIAL DROOPING/APHASIA AND FLACCID RIGHT ARM. ALSO HAD BILATERAL BKA. PATIENT IS FULL LIFT/NON-AMBULATORY BUT ABLE TO MOVE LOWER EXTREMITIES. XL INC STOOL AND THIS SHIFT. SUPRAPUBIC CATH INTACT WITH 1125 ML UOP. HAS ABRASION RIGHT BOTTOCK OPEN TO AIR. ALOE APPLIED AND PATIENT TURNED Q2H. IV TO RIGHT HAND SL. ON INTERMITTENT IV ABX. ACHS ACCUCHECKS. Follow up: CONTINUE TO MONITOR PER PLAN OF CARE.
[2016-12-18 05:38] LABS: ALBUMIN 2.3 gm/dL (3.5-5.0); ANION GAP 11.8 (10.0-19.0); CALCIUM 8.7 mg/dL (8.5-10.5); CREATININE 1.4 mg/dL (0.5-1.1); PHOSPHORUS 2.5 mg/dL (2.5-4.9); POTASSIUM 4.8 mMol/L (3.7-5.1)
--- NOTE | 2016-12-18 14:55 | NUR ---
Significant Event:A/OX 3. Right sided weakness and facial droop. R) hand contracture, slightly slurred speech. Afib. HR in the 70's and 80's. SBP 140's. Remains on room air. Lungs clear/diminished. Eats Fair with set up. Incontinent of large xlarge amount of loose BM. UP to chair 2assist with a lift. Called [facility] to follow up on the sensitivity. Roseann, in lab there says the first screen did not return checker, so doing a different one, after 6 hours, there are still no results. She will fax them when they are done." [facility] will not take the patient back today because a ground instructor advanced was not lined up in advance, so plan to go back to [place] on Tuesday. Dr Mcdonald updated. Scabbed abrasion on buttock, moisture barrier applied with turns. SP cath has lots of mucus in the drainage, site is intact. Follow up:Turn q2h, set up meals.
--- NOTE | 2016-12-19 04:52 | NUR ---
Patient alert and oriented. Transfers 2A full lift. Has R) sided weakness, facial droop, and hand contracture. Slow speech at times. VSS. Large loose bm. ACHS accu checks. Started oral Cipro at HS. Suprapubic cath patent. Abrasion to R) buttock and comes to mid thigh in front. Aloe applied. Saline lock to R) hand. Cooperative with cares. Plans to D/C to [facility] on tuesday.
[2016-12-19 05:10] LABS: ALBUMIN 2.5 gm/dL (3.5-5.0); CALCIUM 8.8 mg/dL (8.5-10.5); CREATININE 1.3 mg/dL (0.5-1.1); PHOSPHORUS 2.4 mg/dL (2.5-4.9); POTASSIUM 4.7 mMol/L (3.7-5.1)
[2016-12-19 05:11] LABS: ANION GAP 11.7 (10.0-19.0)
--- NOTE | 2016-12-19 20:02 | NUR ---
Significant Event:A/O X 3. Forgetful. BM smear today, not enough to send CDiff sample. 2 assist up with the lift to chair shower, showered and shampooed. Poor appetite for both meals today. Open area to right buttock covered with moisture barrier with all turns. Open areas to abdominal folds, covered with moisture barrier. "Excited to go home tomorrow" Back to [facility] tomorrow. Taking PO antibiotics. Started on Levemir 30 units today. Follow up:Please place dismissal papers on chart.
--- NOTE | 2016-12-20 04:21 | NUR ---
Significant Event: Patient A/Ox3 VSS on RA. Patient has rested well most of this shift. 750ml out of suprapubic catheter. Lots of mucous in urine. Tramadol given x1 for leg pain. Follow up: Discharge to [facility] in [place] today
[2016-12-20 06:47] LABS: ALBUMIN 2.7 gm/dL (3.5-5.0); ANION GAP 13.2 (10.0-19.0); CALCIUM 8.9 mg/dL (8.5-10.5); CREATININE 1.3 mg/dL (0.5-1.1); PHOSPHORUS 2.9 mg/dL (2.5-4.9); POTASSIUM 4.2 mMol/L (3.7-5.1)
--- NOTE | 2016-12-20 11:30 | NUR ---
Several calls with Joanne at [facility] and they can accept patient back. Their van will pick her up after a run to [employer] and she thinks it will be around 1315. Talked with patient and updated her. Orders faxed. Nurse will call nurse to nurse report. Patient to transfer to [facility] in [place] via [place] van for skilled care today.
--- NOTE | 2016-12-20 12:14 | NUR ---
significant event/shift summary/ discharge note: patient alert, oriented x3. makes some forgetful/confused comments. conversational, speech is slow and slurred at times. opens eyes spont and to voice, pupils equal and reactive. patient moves L) upper extremity spont, purposefully, and to commands. r) upper extremity limited passive rom. follows some simple commands in r) hand, unable to move r) upper extremity off the bed ( patient states this is baseline r/t previous stroke. this also reported as patient's baseline from previous nurse). patient answers all questions appropriately. denies any pain. patient has been in sinus rhythm, hr 70s. pulses palpable, unable to assess in bilat extremities below the knees. bp stable, sbp 130-140s, map>65. afebrile, max temp 99.0. edema present. patient on room air, sat mid to upper 90s. bowel sounds present, no bm. decrease in apetite noted. accu checks ac/hs. suprapupic catheter intact, adequate urine output, mucus drainage noted in urine. no new skin issues noted. repositioned at least every 2 hours. no iv access. patient to be transfered to [facility]. follow up: to be discharge today
--- NOTE | 2016-12-20 15:55 | NUR ---
DISCHARGE NOTE: PATIENT SENT TO [facility] AT 1405 WITH ALL BELONGINGS. PATIENT ALERT AND ORIENTED UPON DISMISSAL VITALS: HR 77, RR 12, TEMP 98.7, SATS 96% ON ROOM AIR, 149/66 (95). PATIENT VOICES NO COMPLAINTS OR CONCERNS.
== END 2016-12-20 14:05 | DRG 872 ==
LOC: GPCU 15:50
PROVIDERS: Internal Medicine Nephrology; ADMIT Family Medicine
DX: A41.52 Sepsis due to Pseudomonas (principal); I13.0 Hypertensive heart and chronic kidney disease with heart failure and stage 1 through stage 4 chronic kidney disease, or unspecified chronic kidney disease; I95.9 Hypotension, unspecified; Z68.41 Body mass index [BMI] 40.0-44.9, adult; E11.22 Type 2 diabetes mellitus with diabetic chronic kidney disease; I50.30 Unspecified diastolic (congestive) heart failure; M86.9 Osteomyelitis, unspecified; T83.511A Infection and inflammatory reaction due to indwelling urethral catheter, initial encounter; R65.20 Severe sepsis without septic shock; N18.3 Chronic kidney disease, stage 3 (moderate); E66.01 Morbid (severe) obesity due to excess calories; Z79.4 Long term (current) use of insulin; E11.51 Type 2 diabetes mellitus with diabetic peripheral angiopathy without gangrene; I25.10 Atherosclerotic heart disease of native coronary artery without angina pectoris; Z95.5 Presence of coronary angioplasty implant and graft
CPT/HCPCS: J1650; J1956; J2185; J2543; J7030; J7040; J7050

== ENCOUNTER → 2016-12-15 | Outpatient (CLI) | payer MEDICARE, MEDICAID ==
[~2016-12-15] MED LIST changes: +ALOE VESTA141 GM TOP; +ARIPIPRAZOLE15 MG PO; +CETAPHIL LOTION8 OZ TOP; +HUMALOG100 UNIT/1 SUB-Q; +IMODIUM2 MG PO; +LYRICA 150MG C150 MG PO; +SEROQUEL XR400 MG PO; +TRIAMCINOLONE454 GM TOP; +ULTRAM50 MG PO; +VIIBRYD40 MG PO; +ZOFRAN ODT4 MG SL
== END | disposition disaster alternative care site (69) ==
LOC: GAMB 14:57
DX: R53.1 Weakness (principal); Z79.02 Long term (current) use of antithrombotics/antiplatelets; Z79.2 Long term (current) use of antibiotics; Z79.82 Long term (current) use of aspirin; Z79.891 Long term (current) use of opiate analgesic; Z79.52 Long term (current) use of systemic steroids; Z79.899 Other long term (current) drug therapy
CPT/HCPCS: A0422; A0425; A0426